=== PATIENT | male | born 1955 | race Caucasian/White ===

== ENCOUNTER → 2018-09-10 07:40 | Outpatient (CLI) | payer OTHER, SELFPAY ==
--- NOTE | 2018-09-10 | DI.US.S_ITS ---
PROCEDURE: US ABDOMEN COMPLETE INDICATIONS: HISTORY OF HEP C TECHNIQUE: Real-time scanning was performed of the abdominal and retroperitoneal organs, with image documentation. COMPARISON: None. FINDINGS: Liver: Liver is normal in size and homogeneous in echotexture. Gallbladder: No gallstones identified. Normal gallbladder wall. No pericholecystic fluid. Negative sonographic Al sign. Biliary ducts: Intrahepatic bile ducts are non-dilated. Extrahepatic bile duct caliber measures 5.0 mm. Normal is 6-7 mm or less in diameter, or 10 mm or less post-cholecystectomy. Pancreas: Visualized portions of the pancreatic head are sonographically normal. Pancreatic head is a obscured by overlying bowel gas. Spleen: Spleen is normal in size and homogeneous in echotexture. Kidneys: Kidneys are normal in size and echotexture. Right kidney measures 11.0 cm long; left kidney measures 10.2 cm long. No hydronephrosis or nephrolithiasis. No solid masses. Aorta: Visualized aorta is normal in caliber at less than 3 cm. There are echogenic foci consistent with atherosclerosis. Iliacs: Proximal common iliac arteries are normal in caliber at less than 2.5 cm. IVC: Intrahepatic inferior vena cava is patent. Miscellaneous: No free abdominal fluid. IMPRESSION: Atherosclerotic changes of the abdominal aorta. Dictated by: Todd Liu [facility] Interpreted: Adria Yu MD on 09/10/2018 at 10:56 Approved by: Adria Yu M.D. on 09/10/2018 at 14:18
== END ==
PROVIDERS: Visit Provider Nurse Practitioner Acute Care
DX: B19.20 Unspecified viral hepatitis C without hepatic coma (principal); I70.0 Atherosclerosis of aorta
CPT/HCPCS: 76700

== ENCOUNTER 2019-02-06 16:32 | Emergency (ER) | payer OTHER, SELFPAY ==
[2019-02-06 16:42] VITALS: BP 112/68; PULSE 50; RESP 16; TEMP 36.4; O2SAT 100; BMI 21.6
--- NOTE | 2019-02-06 16:51 | ED.CHESTPAIN ---
HPI - Chest Pain General Chief Complaint: Chest Pain Stated Complaint: CHEST PAIN Time Seen by Provider: 02/06/19 16:38 Source: patient Mode of arrival: ambulatory Limitations: no limitations History of Present Illness HPI narrative: Patient is a 63-year-old male who presents with chest discomfort. He says he was on the [place] when he started with some abdominal pain it moved up into his chest. He has never had anything like this past. It is non radiating to his back or jaw. He denies any real shortness of breath. He felt nauseated but no vomiting. He was doing well earlier in the day and yesterday. He has no known coronary artery disease. Patient states that he did take a Vicodin earlier today for some dental pain. It is not something that he normally takes. He is a former alcoholic sober now for 11 years. Nursing states he appeared in quite a bit of distress just prior to my arrival but now looks better. MD complaint: chest pain Duration: now resolved Onset: during rest Pain location: substernal Severity: moderate Quality: heaviness Relieving factors: nothing Exacerbating factors: nothing Treatments prior to arrival chest pain: none Related Data Allergies Allergy/AdvReac Type Severity Reaction Status Date / Time Penicillins Allergy Verified 02/06/19 16:52 Review of Systems Review of Systems ROS Unobtainable: All systems reviewed & are unremarkable except as noted in HPI and below Constitutional Denies chills, Denies fever(s), Denies lethargy and Denies weakness Eyes Denies change in vision, Denies eye discharge, Denies irritation and Denies loss of vision ENT Ears, Nose, Mouth, and Throat: Denies change in voice, Denies neck pain and Denies sore throat Cardiovascular Reports chest pain, Denies dyspnea and Denies dyspnea on exertion Respiratory Denies cough, Denies dyspnea, Denies dyspnea on exertion and Denies wheezing Gastrointestinal Gastrointestinal: Reports abdominal pain, Reports nausea and Denies vomiting Musculoskeletal Denies neck pain Integumentary/Breasts Denies pruritus, Denies erythema, Denies rash and Denies wounds Neurologic Denies loss of vision and Denies weakness Allergic/Immunologic Denies wheezing [facility] Medical History Patient denies significant medical history (Acute) Social History (Updated 02/06/19 @ 18:54 by Sari Segal DO) Smoking Status: Former smoker alcohol intake: former substance use type: does not use Social History Smoking Status: Former smoker alcohol intake: former substance use type: does not use Exam Initial Vital Signs Initial Vital Signs: Vital Signs Temperature 97.5 F L 02/06/19 16:42 Pulse Rate 50 L 02/06/19 16:42 Respiratory Rate 16 02/06/19 16:42 Blood Pressure 112/68 02/06/19 16:42 Pulse Oximetry 100 02/06/19 16:42 GENERAL: Thin male alert oriented appears in no distress at this time HEENT: Head atraumatic,EOMI, pupils reactive, CARDIOVASCULAR: Regular rate and rhythm without murmurs, rubs or gallops. RESPIRATORY: Breath sounds equal bilaterally, no wheezes rales or rhonchi. ABDOMEN: Soft, nontender. Normoactive bowel sounds all 4 quadrants. No guarding or rebound. EXTREMITIES: Normal range of motion, no clubbing or edema. Neurovascularly intact NEUROLOGICAL: Alert and oriented x4.Normal gait and speech. Cranial nerves II through XII grossly intact. SKIN: Warm, dry, no laceration, no petechiae, no rashes or lesions. Scores HEART Score Heart Score history: Moderately Suspicious Heart Score EKG: Normal Heart Score Age: < 45 years old Heart Score risk factors: No known risk factors Heart Score troponin: < or = to normal limit Heart Score Total: 1 Course Orders Ordered: ED Orders 02/06/19 16:35 Complete Blood Count AUTO DIFF Stat Comprehensive Metabolic Panel Stat Lipase Stat Troponin & CK Cardiac Panel Stat 02/06/19 16:38 EKG-12 Lead Routine 02/06/19 16:52 XR chest 1V Stat Discontinued Medications Aspirin (Aspirin Chew) 324 mg PO NOW ONE Stop: 02/06/19 16:53 Last Admin: 02/06/19 16:54 Dose: 324 mg Sodium Chloride (Normal Saline 0.9%) 1,000 mls @ 1,000 mls/hr IV BOLUS ONE Stop: 02/06/19 18:15 Last Infusion: 02/06/19 18:07 Dose: 0 mls/hr Admin: 02/06/19 17:27 Dose: 1,000 mls/hr Nitroglycerin (Nitrostat) 0.4 mg SL NOW ONE Stop: 02/06/19 17:17 Pantoprazole Sodium (Protonix) 40 mg IV NOW ONE Stop: 02/06/19 17:17 Last Admin: 02/06/19 17:27 Dose: 40 mg Reevaluation(s) Reevaluation #1: Patient again having chest pain quite severe. Nitroglycerin and Protonix ordered repeat EKG. Decision for CT angio for dissection Time: 17:27 Vital Signs - 8 hr 02/06/19 16:42 02/06/19 17:30 02/06/19 18:07 Temperature 97.5 F L Pulse Rate 50 L 50 L 54 L Respiratory Rate 16 7 L 14 Blood Pressure 112/68 114/74 Blood Pressure [Left Arm] 127/73 Pulse Oximetry 100 100 98 MDM - Chest Pain Lab Data Attestation: I reviewed the patient's lab results. Result diagrams: 02/06/19 16:35 02/06/19 16:35 Lab Results 02/06/19 02/06/19 Range/Units 16:35 16:35 WBC 8.3 (4.5-11.0) X10^3/uL RBC 3.97 L (4.5-5.9) X10^6/uL Hgb 12.4 L (13.5-17.5) g/dL Hct 36.5 L (41-53) % MCV 92.0 (80-100) fL MCH 31.3 (26-34) PG MCHC 34.1 (30-36) % RDW 12.9 (11.6-14.8) % Plt Count 300 (150-400) X10^3/uL Neut % (Auto) 38.0 L (50-75) % Lymph % (Auto) 49.1 H (25-40) % [place] % (Auto) 10.9 (3-14) % Eos % (Auto) 1.6 L (2-4) % Baso % (Auto) 0.4 (0-2) % Neut # (Auto) 3100 (9018-3647) /uL Lymph # (Auto) 4000 (3749-7555) /uL [place] # (Auto) 900 (0-900) /uL Eos # (Auto) 100 (0-450) /uL Baso # (Auto) 0 (0-100) /uL Sodium 138 (137-145) mmol/L Potassium 3.7 (3.4-5.1) mmol/L Chloride 102 (98-107) mmol/L Carbon Dioxide 26 (22-32) mmol/L BUN 15 (9-20) mg/dL Creatinine 0.70 (0.66-1.25) mg/dL Estimated GFR > 60.0 (>60) mL/min BUN/Creatinine Ratio 21.4 (6-22) Glucose 109 (80-110) mg/dL Calcium 8.9 (8.4-10.2) mg/dL Total Bilirubin 0.5 (0.2-1.3) mg/dL AST 23 (17-59) IU/L ALT 22 (21-72) IU/L Alkaline Phosphatase 53 (38-126) U/L Total Creatine Kinase 91 (55-170) U/L CK-MB (CK-2) TNP CK-MB (CK-2) Rel Index TNP Troponin I < 0.012 (0.01-0.034) ng/mL Total Protein 7.2 (6.3-8.2) g/dL Albumin 4.3 (3.5-5.0) g/dL Globulin 2.9 (1.7-4.1) g/dL Albumin/Globulin Ratio 1.5 (1.0-2.8) Lipase 124 (23-300) U/L Imaging Data Chest x-ray: Radiologist's impression: PROCEDURE: XR CHEST 1V INDICATIONS: chest pain TECHNIQUE: One view of the chest was acquired. COMPARISON: None. FINDINGS: Surgical changes and devices: None. Lungs and pleura: Lungs are clear. No pleural effusions or pneumothorax. Mediastinum: Mediastinal contours appear normal. Heart size is normal. Bones and chest wall: No suspicious bony lesions. Overlying soft tissues appear unremarkable. IMPRESSION: No acute cardiopulmonary pathology. Dictated by: Temo Bolanos M.D. on 02/06/2019 at 17:19 ECG Data Attestation: I personally reviewed and interpreted this ECG as follows: Prior ECG tracings: available for review Interpretation: EKG 1. Normal sinus rhythm at a rate [address] changes, benign early positional repolarization no ST depression EKG 2. Sinus rhythm rate 72 similar to previous no changes MDM Narrative Medical decision making narrative: The patient had episode of again chest pain in the ED vomited before he was able to get nitroglycerin. He overall is feeling much better requesting to go. I initially ordered CT angio to rule out dissection because he was having such severe pain and has never had anything like this before. However he is now pain-free and refusing the CT scan. Stating that he does not have insurance he actually [facility] We had social Work in there to discuss with him his insurance and options. The patient is now requesting to leave. I discussed with him at least repeat troponin in 3 hours to help rule out [place]. I think a CT were negative and troponin were negative he is a low risk and a follow-up in be discharged safely I have discussed this with both and patient both are still requesting to go. I understand that they may return to the ER at any time for worsening pain. They understand that [place] has not been ruled out. The patient is clinically sober, free from distracting injury, appears to have intact insight, judgment and reason. Does not meet criteria for involuntary hospitalization. Patient has the capacity to make decisions. Discharge Plan Departure Patient Disposition: Left Against Medical Advice Clinical Impression: Atypical chest pain Discharge Date/Time: 02/06/19 18:08 Interventions: ED Discharge Assessment Last Done: 02/06/19 18:07 Instructions: DI for Acute Coronary Syndrome, DI for Atypical Chest Pain Activity Restrictions/Additional Instructions: Your leaving against medical advice Is still recommended that you have further cardiac testing on your heart. You are welcome to return to any emergency department if you should have new or worsening pain Please call your primary care provider at the [facility] on Saturday to schedule a follow-up appointment next week Stand Alone Forms: Against Medical Advice
[2019-02-06] MEDS: ASPIRIN 81 MG TAB 324 MG PO (16:54)
[2019-02-06 17:02] LABS: Add Manual Diff / Slide Review NO; Basophils Absolute Auto 0 /uL (0-100); Basophils Percent Auto 0.4 % (0-2); Eosinophils Absolute Auto 100 /uL (0-450); Eosinophils Percent Auto 1.6 % (2-4); Hematocrit 36.5 % (41-53); Hemoglobin 12.4 g/dL (13.5-17.5); Lymphocytes Absolute Auto 4000 /uL (1100-4500); Lymphocytes Percent Auto 49.1 % (25-40); Mean Corpuscular HGB Conc 34.1 % (30-36); Mean Corpuscular Hemoglobin 31.3 PG (26-34); Monocytes Absolute Auto 900 /uL (0-900); Monocytes Percent Auto 10.9 % (3-14); Neutrophils Absolute Auto 3100 /uL (1500-7000); Platelet Count 300 X10^3/uL (150-400); Red Blood Cell Count 3.97 X10^6/uL (4.5-5.9); Red Cell Distribution Width 12.9 % (11.6-14.8); White Blood Cell Count 8.3 X10^3/uL (4.5-11.0)
[2019-02-06 17:18] LABS: Alanine Aminotransferase 22 IU/L (21-72); Albumin 4.3 g/dL (3.5-5.0); Albumin Globulin Ratio 1.5 (1.0-2.8); Alkaline Phosphatase 53 U/L (38-126); Aspartate Aminotransferase 23 IU/L (17-59); BUN Creatinine Ratio 21.4 (6-22); Bilirubin Total 0.5 mg/dL (0.2-1.3); Blood Urea Nitrogen 15 mg/dL (9-20); Calcium 8.9 mg/dL (8.4-10.2); Carbon Dioxide 26 mmol/L (22-32); Chloride 102 mmol/L (98-107); Creatine Kinase 91 U/L (55-170); Estimated Glomerular Filt Rate > 60.0 mL/min (>60); Globulin 2.9 g/dL (1.7-4.1); Glucose 109 mg/dL (80-110); HEMOLYSIS < 15 (0-50); Lipase 124 U/L (23-300); Potassium 3.7 mmol/L (3.4-5.1); Sodium 138 mmol/L (137-145); Total Protein 7.2 g/dL (6.3-8.2)
[2019-02-06] MEDS: SODIUM CHLORIDE 0.9% 1,000 ML 1000 ML IV (17:27)
[2019-02-06] MEDS: PANTOPRAZOLE 40 MG VIAL IV (17:27)
[2019-02-06 17:30] VITALS: BP 127/73; PULSE 50; RESP 7; O2SAT 100
[2019-02-06 17:30] LABS: Troponin I < 0.012 ng/mL (0.01-0.034)
--- NOTE | 2019-02-06 17:33 | ED_ITS ---
HPI - Chest Pain General Chief Complaint: Chest Pain Stated Complaint: CHEST PAIN Time Seen by Provider: 02/06/19 16:38 Source: patient Mode of arrival: ambulatory Limitations: no limitations History of Present Illness HPI narrative: Patient is a 63-year-old male who presents with chest discomfort. He says he was on the [place] when he started with some abdominal pain it moved up into his chest. He has never had anything like this past. It is non radiating to his back or jaw. He denies any real shortness of breath. He felt nauseated but no vomiting. He was doing well earlier in the day and yesterday. He has no known coronary artery disease. Patient states that he did take a Vicodin earlier today for some dental pain. It is not something that he normally takes. He is a former alcoholic sober now for 11 years. Nursing states he appeared in quite a bit of distress just prior to my arrival but now looks better. MD complaint: chest pain Duration: now resolved Onset: during rest Pain location: substernal Severity: moderate Quality: heaviness Relieving factors: nothing Exacerbating factors: nothing Treatments prior to arrival chest pain: none Related Data Allergies Allergy/AdvReac Type Severity Reaction Status Date / Time Penicillins Allergy Verified 02/06/19 16:52 Review of Systems Review of Systems ROS Unobtainable: All systems reviewed & are unremarkable except as noted in HPI and below Constitutional Denies chills, Denies fever(s), Denies lethargy and Denies weakness Eyes Denies change in vision, Denies eye discharge, Denies irritation and Denies loss of vision ENT Ears, Nose, Mouth, and Throat: Denies change in voice, Denies neck pain and Denies sore throat Cardiovascular Reports chest pain, Denies dyspnea and Denies dyspnea on exertion Respiratory Denies cough, Denies dyspnea, Denies dyspnea on exertion and Denies wheezing Gastrointestinal Gastrointestinal: Reports abdominal pain, Reports nausea and Denies vomiting Musculoskeletal Denies neck pain Integumentary/Breasts Denies pruritus, Denies erythema, Denies rash and Denies wounds Neurologic Denies loss of vision and Denies weakness Allergic/Immunologic Denies wheezing [facility] Medical History Patient denies significant medical history (Acute) Social History (Updated 02/06/19 @ 18:54 by Sari Segal DO) Smoking Status: Former smoker alcohol intake: former substance use type: does not use Social History Smoking Status: Former smoker alcohol intake: former substance use type: does not use Exam Initial Vital Signs Initial Vital Signs: Vital Signs Temperature 97.5 F L 02/06/19 16:42 Pulse Rate 50 L 02/06/19 16:42 Respiratory Rate 16 02/06/19 16:42 Blood Pressure 112/68 02/06/19 16:42 Pulse Oximetry 100 02/06/19 16:42 GENERAL: Thin male alert oriented appears in no distress at this time HEENT: Head atraumatic,EOMI, pupils reactive, CARDIOVASCULAR: Regular rate and rhythm without murmurs, rubs or gallops. RESPIRATORY: Breath sounds equal bilaterally, no wheezes rales or rhonchi. ABDOMEN: Soft, nontender. Normoactive bowel sounds all 4 quadrants. No gu arding or rebound. EXTREMITIES: Normal range of motion, no clubbing or edema. Neurovascularly intact NEUROLOGICAL: Alert and oriented x4.Normal gait and speech. Cranial nerves II through XII grossly intact. SKIN: Warm, dry, no laceration, no petechiae, no rashes or lesions. Scores HEART Score Heart Score history: Moderately Suspicious Heart Score EKG: Normal Heart Score Age: < 45 years old Heart Score risk factors: No known risk factors Heart Score troponin: < or = to normal limit Heart Score Total: 1 Course Orders Ordered: ED Orders 02/06/19 16:35 Complete Blood Count AUTO DIFF Stat Comprehensive Metabolic Panel Stat Lipase Stat Troponin & CK Cardiac Panel Stat 02/06/19 16:38 EKG-12 Lead Routine 02/06/19 16:52 XR chest 1V Stat Discontinued Medications Aspirin (Aspirin Chew) 324 mg PO NOW ONE Stop: 02/06/19 16:53 Last Admin: 02/06/19 16:54 Dose: 324 mg Sodium Chloride (Normal Saline 0.9%) 1,000 mls @ 1,000 mls/hr IV BOLUS ONE Stop: 02/06/19 18:15 Last Infusion: 02/06/19 18:07 Dose: 0 mls/hr Admin: 02/06/19 17:27 Dose: 1,000 mls/hr Nitroglycerin (Nitrostat) 0.4 mg SL NOW ONE Stop: 02/06/19 17:17 Pantoprazole Sodium (Protonix) 40 mg IV NOW ONE Stop: 02/06/19 17:17 Last Admin: 02/06/19 17:27 Dose: 40 mg Reevaluation(s) Reevaluation #1: Patient again having chest pain quite severe. Nitroglycerin and Protonix ordered repeat EKG. Decision for CT angio for dissection Time: 17:27 Vital Signs - 8 hr 02/06/19 16:42 02/06/19 17:30 02/06/19 18:07 Temperature 97.5 F L Pulse Rate 50 L 50 L 54 L Respiratory Rate 16 7 L 14 Blood Pressure 112/68 114/74 Blood Pressure [Left Arm] 127/73 Pulse Oximetry 100 100 98 MDM - Chest Pain Lab Data Attestation: I reviewed the patient's lab results. Result diagrams: 02/06/19 16:35 02/06/19 16:35 Lab Results 02/06/19 02/06/19 Range/Units 16:35 16:35 WBC 8.3 (4.5-11.0) X10^3/uL RBC 3.97 L (4.5-5.9) X10^6/uL Hgb 12.4 L (13.5-17.5) g/dL Hct 36.5 L (41-53) % MCV 92.0 (80-100) fL MCH 31.3 (26-34) PG MCHC 34.1 (30-36) % RDW 12.9 (11.6-14.8) % Plt Count 300 (150-400) X10^3/uL Neut % (Auto) 38.0 L (50-75) % Lymph % (Auto) 49.1 H (25-40) % [place] % (Auto) 10.9 (3-14) % Eos % (Auto) 1.6 L (2-4) % Baso % (Auto) 0.4 (0-2) % Neut # (Auto) 3100 (7379-8685) /uL Lymph # (Auto) 4000 (7580-6723) /uL [place] # (Auto) 900 (0-900) /uL Eos # (Auto) 100 (0-450) /uL Baso # (Auto) 0 (0-100) /uL Sodium 138 (137-145) mmol/L Potassium 3.7 (3.4-5.1) mmol/L Chloride 102 (98-107) mmol/L Carbon Dioxide 26 (22-32) mmol/L BUN 15 (9-20) mg/dL Creatinine 0.70 (0.66-1.25) mg/dL Estimated GFR > 60.0 (>60) mL/min BUN/Creatinine Ratio 21.4 (6-22) Glucose 109 (80-110) mg/dL Calcium 8.9 (8.4-10.2) mg/dL Total Bilirubin 0.5 (0.2-1.3) mg/dL AST 23 (17-59) IU/L ALT 22 (21-72) IU/L Alkaline Phosphatase 53 (38-126) U/L Total Creatine Kinase 91 (55-170) U/L CK-MB (CK-2) TNP CK-MB (CK-2) Rel Index TNP Troponin I < 0.012 (0.01-0.034) ng/mL Total Protein 7.2 (6.3-8.2) g/dL Albumin 4.3 (3.5-5.0) g/dL Globulin 2.9 (1.7-4.1) g/dL Albumin/Globulin Ratio 1.5 (1.0-2.8) Lipase 124 (23-300) U/L Imaging Data Chest x-ray: Radiologist's impression: PROCEDURE: XR CHEST 1V INDICATIONS: chest pain TECHNIQUE: One view of the chest was acquired. COMPARISON: None. FINDINGS: Surgical changes and devices: None. Lungs and pleura: Lungs are clear. No pleural effusions or pneumothorax. Mediastinum: Mediastinal contours appear normal. Heart size is normal. Bones and chest wall: No suspicious bony lesions. Overlying soft tissues appear unremarkable. IMPRESSION: No acute cardiopulmonary pathology. Dictated by: Temo Bolanos M.D. on 02/06/2019 at 17:19 ECG Data Attestation: I personally reviewed and interpreted this ECG as follows: Prior ECG tracings: available for review Interpretation: EKG 1. Normal sinus rhythm at a rate [address] changes, benign early positional repolarization no ST depression EKG 2. Sinus rhythm rate 72 similar to previous no changes MDM Narrative Medical decision making narrative: The patient had episode of again chest pain in the ED vomited before he was able to get nitroglycerin. He overall is feeling much better requesting to go. I initially ordered CT angio to rule out dissection because he was having such severe pain and has never had anything like this before. However he is now pain-free and refusing the CT scan. Stating that he does not have insurance he actually [facility] We had social Work in there to discuss with him his insurance and options. The patient is now requesting to leave. I discussed with him at least repeat troponin in 3 hours to help rule out [place]. I think a CT were negative and troponin were negative he is a low risk and a follow-up in be discharged safely I have discussed this with both and patient both are still requesting to go. I understand that they may return to the ER at any time for worsening pain. They understand that [place] has not been ruled out. The patient is clinically sober, free from distracting injury, appears to have intact insight, judgment and reason. Does not meet criteria for involuntary hospitalization. Patient has the capacity to make decisions. Discharge Plan Departure Patient Disposition: Left Against Medical Advice Clinical Impression: Atypical chest pain Discharge Date/Time: 02/06/19 18:08 Interventions: ED Discharge Assessment Last Done: 02/06/19 18:07 Instructions: DI for Acute Coronary Syndrome, DI for Atypical Chest Pain Activity Restrictions/Additional Instructions: Your leaving against medical advice Is still recommended that you have further cardiac testing on your heart. You are welcome to return to any emergency department if you should have new or worsening pain Please call your primary care provider at the [facility] on Saturday to schedule a follow- up appointment next week Stand Alone Forms: Against Medical Advice
--- NOTE | 2019-02-06 17:37 | PC.NURSE ---
Pt requests to s/w prior to CT scan due to insurance
--- NOTE | 2019-02-06 18:03 | CM.SWNOTE ---
DCP: PRODUCT ENGINEERING MANAGER reviewed chart and interviewed pt. Plan is to d/c home with f/u instructions to see PCP. [place] [place] Discharge Planning/Care Management ED Crisis Response Assessment Start: 02/06/19 17:54 Freq: Status: Active Protocol: Document 02/06/19 17:54 DPL (Rec: 02/06/19 18:03 DPL [id number]) ED Crisis Response Assessment PRODUCT ENGINEERING MANAGER Assessment Type Other Reason for PRODUCT ENGINEERING MANAGER Referral Discuss insurance concerns, pt wanting to discharge AMA. Referred by ED provider request. Presenting Problem Pt had presented to the ED with chest pain. He experienced abdoniminal pain that moved up into his chest, it was non-radiating to his back/jaw, no shortness of breath. Pt found to be alert, oriented and in no apparent distress. Mental health diagnosis N/A VOA/CMS check No Suicidal thoughts No Past Suicidal thoughts No Current Suicidal thoughts No Current plan for self harm No Access to guns and weapons No Thoughts of harm to others No Past thoughts of harm to others No Current thoughts of harming others No Prior attempts to harm others No Current plan to harm others No Risk factor comments No risk factors identified at this time. Relevant Medical History No known medical history. Pt is a former alcoholic, sober for the last 11-years. Crisis Plan Discharge plan-pt is wanting to leave the ED without following the recommendations of the ED provider to complete further blood tests. He states that he is certain that this chest pain was exacerbated by drinking too much juice, and has not experienced these symptoms prior to today. If patient does leave AMA, he is agreeable to following up with [facility] [place]. If symptoms resume and he becomes uncomfortable again, he agrees to return to the ED. Resources Provided N/A Action taken Sent home w/ safety plan
[2019-02-06 18:07] VITALS: BP 114/74; PULSE 54; RESP 14; O2SAT 98
== END 2019-02-06 18:08 | disposition left against medical advice (07) ==
PROVIDERS: Emergency Provider Emergency Medicine
DX: R07.89 Other chest pain (principal); R11.0 Nausea; R10.9 Unspecified abdominal pain; Z53.20 Procedure and treatment not carried out because of patient's decision for unspecified reasons
CPT/HCPCS: 36415; 36591; 71045; 80053; 82550; 83690; 84484; 85025; 93005; 93010; 96361; 96374; 99283; 99285; C9113